=== PATIENT | male | born 1960 | race Caucasian/White ===

== ENCOUNTER 2017-06-26 21:07 | Emergency (ER) | payer BC, OTHER ==
--- NOTE | 2017-06-26 22:02 | EDM.PDOC ---
ED HPI GENERAL MEDICAL PROBLEM - General Chief Complaint: Respiratory Problem Stated Complaint: COUGH AND CONGESTION Time Seen by Provider: 06/26/17 21:40 Source of Information: Reports: Patient History Limitations: Reports: No Limitations - History of Present Illness INITIAL COMMENTS - FREE TEXT/NARRATIVE: 56 year old male presents for evaluation and treatment of a cough. Reports he has had the cough for the last month and it is steadily worsening. Reports it is a wet sounding cough but he is not coughing much up. Has tried multiple OTC medications with no relief. Reports associated chills, nasal congestion, malaise , bodyaches and headaches. States yesterday he "blacked out" from coughing but did not completely loose consciousness. No ear pain, nausea, vomiting or documented fevers. reports he has felt warm but he has not taken his temp. Reports over the last 2 days the cough has greatly worsened. Reports when he lays down the cough worsens. Reports shortness of breath and chest soreness from coughing. Patient does not have a PCP. No influenza vaccine this year. Not on any medications, has not seen a provider in at least 3 years. Duration: Week(s): (4) - Related Data Allergies Allergy/AdvReac Type Severity Reaction Status Date / Time egg Allergy Cannot Verified 06/26/17 21:17 Remember Home Meds: Home Meds . [No Known Home Meds] 06/26/17 [History] Past Medical History - Past Surgical History HEENT Surgical History: Reports: Naso-Sinus Surgery GI Surgical History: Reports: Appendectomy Social & Family History - Tobacco Use Smoking Status *Q: Never Smoker Second Hand Smoke Exposure: No - Caffeine Use Caffeine Use: Reports: Tea - Alcohol Use Days Per Week of Alcohol Use: 0 - Recreational Drug Use Recreational Drug Use: No ED ROS GENERAL - Review of Systems Review Of Systems: See Below Constitutional: Reports: Fever (no documented fevers), Chills, Malaise, Fatigue. Denies: Weight Loss, Weight Gain HEENT: Reports: Sinus Problem. Denies: Ear Pain, Throat Pain Respiratory: Reports: Shortness of Breath, Cough. Denies: Sputum Cardiovascular: Reports: Lightheadedness. Denies: Chest Pain (reports chest soreness from coughing), Syncope GI/Abdominal: Denies: Abdominal Pain, Nausea, Vomiting Neurological: Reports: Headache. Denies: Syncope ED EXAM, GENERAL - Physical Exam Exam: See Below Exam Limited By: No Limitations General Appearance: Alert, WD/WN, No Apparent Distress, Obese Eye Exam: Bilateral Eye: Normal Inspection, PERRL Ears: Normal External Exam, Normal Canal, Hearing Grossly Normal Ear Exam: Left Ear: TM Bulging, Bilateral Ear: Canal Normal, Erythema Nose: Normal Inspection Throat/Mouth: Normal Inspection, Normal Lips, Normal Voice, No Airway Compromise Respiratory/Chest: No Respiratory Distress, Rhonchi (bilateral lung bases) Cardiovascular: Normal Peripheral Pulses, Regular Rate, Rhythm, No Murmur Extremities: No Pedal Edema Neurological: Alert, Oriented, Normal Cognition Psychiatric: Normal Affect, Normal Mood Skin Exam: Warm, Dry, Normal Color Course - Vital Signs Last Recorded V/S: Last Vital Signs Temp 36.4 C 06/26/17 21:14 Pulse 78 06/26/17 21:14 Resp 16 06/26/17 21:14 BP 152/99 H 06/26/17 21:14 Pulse Ox 96 06/26/17 21:14 - Orders/Labs/Meds Labs: Laboratory Tests 06/26/17 06/26/17 Range/Units 21:50 21:50 WBC 7.30 (4.23-9.07) K/mm3 RBC 5.10 (4.63-6.08) M/mm3 Hgb 15.6 (13.7-17.5) gm/L Hct 46.3 (40.1-51.0) % MCV 90.8 (79.0-92.2) fl MCH 30.6 (25.7-32.2) pg MCHC 33.7 (32.2-35.5) g/dl RDW Std Deviation 48.3 H (35.1-43.9) fL Plt Count 211 (163-337) K/mm3 MPV 10.4 (9.4-12.3) fl Neut % (Auto) 59.6 (34.0-67.9) % Lymph % (Auto) 22.2 (21.8-53.1) % [place] % (Auto) 9.6 (5.3-12.2) % Eos % (Auto) 8.2 H (0.8-7.0) Baso % (Auto) 0.3 (0.1-1.2) % Neut # (Auto) 4.35 (1.78-5.38) K/mm3 Lymph # (Auto) 1.62 (1.32-3.57) K/mm3 [place] # (Auto) 0.70 (0.30-0.82) K/mm3 Eos # (Auto) 0.60 H (0.04-0.54) K/mm3 Baso # (Auto) 0.02 (0.01-0.08) K/mm3 Sodium 137 (136-145) mEq/L Potassium 3.8 (3.5-5.1) mEq/L Chloride 100 (98-107) mEq/L Carbon Dioxide 26 (21-32) mEq/L Anion Gap 14.8 (5-15) BUN 12 (7-18) mg/dL Creatinine 1.3 (0.7-1.3) mg/dL Est Cr Clr Drug Dosing 62.12 mL/min Estimated GFR (MDRD) 57 (>60) mL/min BUN/Creatinine Ratio 9.2 L (14-18) Glucose 305 H (74-106) mg/dL Calcium 9.0 (8.5-10.1) mg/dL - Radiology Interpretation Free Text/Narrative:: 2 view chest xray shows no obvious infiltrates, no pulmonary vascular congestion - Re-Assessments/Exams Free Text/Narrative Re-Assessment/Exam: 06/26/17 22:25 influenza is negative. I reviewed the labs and imaging with the patient. Blood sugar is elevated at over 300. Patient reports he last ate around 18:30 tonight. States he was told he was pre diabetic 3 years ago. Has been managing his pre diabetes with diet. Encouraged follow-up with family medicine. Discharge instructions as documented. Departure - Departure Time of Disposition: 22:34 Disposition: Home, Self-Care 01 Condition: Good Clinical Impression: Bronchitis, Hyperglycemia - Discharge Information Instructions: Hyperglycemia, Acute Bronchitis, [id number] Referrals: PCP,None [Primary Care Provider] - Arian Cordova [Physician] - Forms: ED Department Discharge Additional Instructions: Prescription for azithromycin 250 mg; sig: Take 2 tabs day 1, 1 tab day 2 through 5 Prescription for promethazine/codeine 6.2 510 per 5, sig : Take 5-10 mils every 4-6 hours as needed for cough #120mls Prescription for albuterol 1-2 puffss every 4-6 hours as needed for shortness of breath Perceptions were given through instymeds. Take the azithromycin as prescribed. 2 tabs on day 1 followed by 1 tabs on day 2 through 5 for 5 days of medication total. this Medication dose stay in your system for 10 days. Follow-up with family medicine next week for recheck of your symptoms and further evaluation of your hyperglycemia. Recommend Dr. Galvez or Dr. Valdes at the [facility]. Please call [phone] to schedule with either provider. Codeine cough syrup 5-10 mils every 4-6 hours as needed for cough. Do not drive or operate machinery while taking the codeine with cough syrup. Codeine can be habit forming, recommend you take as little as needed to control your cough. Albuterol inhaler 1-2 puffs every 4-6 hours as needed for shortness of breath. Rest. make sure you are drinking plenty of fluids. Please return to the ER if your symptoms change or worsen.
--- NOTE | 2017-06-27 09:50 | CR ---
Chest: Two views of the chest were obtained. Comparison: No prior chest x-ray. Heart size is normal. Tortuous thoracic aorta is seen. Lungs are clear with no acute infiltrates. Minimal degenerative change is seen within the spine. Impression: 1. Incidental findings. Nothing acute is appreciated on two-view chest x-ray. Diagnostic code #2
== END 2017-06-26 22:56 | disposition home or self-care (01) ==
LOC: JD.ED 21:07
DX: J40 Bronchitis, not specified as acute or chronic (principal); R73.9 Hyperglycemia, unspecified; Z91.012 Allergy to eggs
CPT/HCPCS: 36415; 71020; 71020-26; 80048; 85025; 87804; 99283; 99284

== ENCOUNTER 2019-10-02 06:49 | Day surgery (SDC) | payer OTHER ==
[~2019-10-02 06:49] MED LIST: Lidocaine 1%/Sod Bicarbonate in NS 8.4% 1 ML Syringe IDERM PRN; Sodium Chloride 0.9% 10 ML Syringe FLUSH PRN
[2019-10-02] MEDS: Lactated Ringers 1,000 ML IV SCH ×2 (07:25→10:25)
--- NOTE | 2019-10-02 08:31 | PCM.PREANE ---
Preanesthetic Assessment - Anesthesia/Transfusion/Family Hx Anesthesia History: Prior Anesthesia Without Reaction Family History of Anesthesia Reaction: No - Review of Systems General: No Symptoms Pulmonary: Cough (occasionally) Cardiovascular: No Symptoms Gastrointestinal: No Symptoms Neurological: No Symptoms Other: Reports: None - Physical Assessment NPO Status Date: 10/02/19 NPO Status Time: 04:00 Vital Signs: Last Vital Signs Temp 97.2 F 10/02/19 07:10 Pulse 63 10/02/19 07:10 Resp 28 H 10/02/19 07:10 BP 137/94 H 10/02/19 07:10 Pulse Ox 95 10/02/19 07:10 Height: 1.73 m Weight: 133.81 kg ASA Class: 3 Mental Status: Alert & Oriented x3 Airway Class: Mallampati = 3 Dentition: Reports: Normal Dentition Thyro-Mental Finger Breadths: 3 Mouth Opening Finger Breadths: 3 ROM/Head Extension: Limited/Partial Lungs: Clear to Auscultation, Normal Respiratory Effort Cardiovascular: Regular Rate, Regular Rhythm - Allergies Allergies/Adverse Reactions: Allergies Allergy/AdvReac Type Severity Reaction Status Date / Time egg Allergy Cannot Verified 10/01/19 11:47 Remember - Acknowledgements Anesthesia Type Planned: MAC Pt an Appropriate Candidate for the Planned Anesthesia: Yes Alternatives and Risks of Anesthesia Discussed w Pt/Guardian: Yes Pt/Guardian Understands and Agrees with Anesthesia Plan: Yes PreAnesthesia Questionnaire HEENT History: Reports: Impaired Vision, Other (See Below) Other HEENT History: wears glasses, has dentures Cardiovascular History: Reports: High Cholesterol, Hypertension Musculoskeletal History: Reports: Other (See Below) Other Musculoskeletal History: fractured ribs Psychiatric History: Reports: None Endocrine/Metabolic History: Reports: Diabetes, Type II, Obesity/BMI 30+ Hematologic History: Reports: None Immunologic History: Reports: None Oncologic (Cancer) History: Reports: None Dermatologic History: Reports: Cellulitis - Past Surgical History Head Surgeries/Procedures: Reports: None HEENT Surgical History: Reports: Naso-Sinus Surgery Cardiovascular Surgical History: Reports: None Respiratory Surgical History: Reports: None GI Surgical History: Reports: Appendectomy Female Surgical History: Reports: None Male Surgical History: Reports: None Endocrine Surgical History: Reports: None Neurological Surgical History: Reports: None Musculoskeletal Surgical History: Reports: None Oncologic Surgical History: Reports: None Dermatological Surgical History: Reports: None - SUBSTANCE USE Smoking Status *Q: Never Smoker Recreational Drug Use History: No - HOME MEDS Home Medications: Home Meds Aspirin [Halfprin] 81 mg PO DAILY 10/01/19 [History] Dulaglutide [Trulicity] 1.5 mg SQ KNIGHT 10/01/19 [History] Losartan [Cozaar] 50 mg PO DAILY 10/01/19 [History] Rosuvastatin [Crestor] 10 mg PO BEDTIME 10/01/19 [History] Cinnamon Bark [Cinnamon] 500 mg PO DAILY 10/02/19 [History] - CURRENT (IN HOUSE) MEDS Current Meds: Current Medications Lactated Ringer's (Ringers, Lactated) 1,000 mls @ 125 mls/hr IV ASDIRECTED NEYDA Stop: 10/02/19 23:00 Last Admin: 10/02/19 07:25 Dose: 125 mls/hr Lidocaine/Sodium Bicarbonate (Buffered Lidocaine 1% In Ns 8.4%) 0.25 ml IDERM ONETIME PRN PRN Reason: Prior to IV Start Stop: 10/02/19 18:00 Last Admin: 10/02/19 07:25 Dose: 0.25 ml Sodium Chloride (Saline Flush) 10 ml FLUSH ASDIRECTED PRN PRN Reason: Keep Vein Open Stop: 10/02/19 18:00
[2019-10-02] MEDS ORDERED: Propofol 200 MG/20 ML SDV ONE ×5 (08:36→09:27)
[2019-10-02] MEDS ORDERED: fentaNYL 100 MCG/2 ML SDV ONE (08:37)
[2019-10-02] MEDS ORDERED: Lidocaine 1% 4 ML ONE (08:38)
--- NOTE | 2019-10-02 09:53 | PCM.PRNOTE ---
- Free Text/Narrative Note: Date: 10/02/2019 Procedure: screening colonoscopy Endoscopist: Dev Valdovinos MD Findings: Ileocecal valve visualized. Prep was fair. Approximately 3 cm sessile lesion at lateral aspect of cecum; saline lift was performed and sample biopsy with forceps obtained- this lesion was not amenable to complete resection with endoscopic means. A broad-based 1 cm polyp was identified at the hepatic flexure with an adjacent subcentimeter polyp; these were biopsied with forceps; but fulguration was deferred and piecemeal resection deferred due to technically difficult visualization and access. Sigmoid diverticular disease and mild hemorrhoidal disease noted. Detailed Report: The patient was taken to the endoscopy suite and placed in left lateral decubitus position. Time out was performed and monitored anesthesia care was initiated. Mild hemorrhoidal prolapse noted. Digital rectal exam was unremarkable save for palpable hemorrhoidal cushions. The lubricated colonoscope was then inserted and advanced all the way to the cecum. The ileocecal valve was visualized. The prep was fair. On slow withdrawal of the scope, mucosal surfaces were carefully inspected. It was technically very difficult to maintain positioning and visualization in the cecum. There was a ridge of tissue suspicious for adenoma along the edge of one of the normal- appearing cecal folds. Image was captured and then saline lift was attempted. The lesion could not be ensnared, and so a sample biopsy with forceps was obtained. The lesion was too large for satisfactory piecemeal resection or cauterization. At approximately the level of the hepatic flexure, a roughly 1 cm broad-based polypoid lesion was encountered. This was a very technically difficult spot to work; maintaining visualization was difficult, and obtaining a single sample with biopsy forceps was challenging. There was an adjacent small polypoid lesion that was biopsied with forceps as well. Fulguration was deferred due to technical challenges. The remainder of the colon appeared normal without polyps until the level of the sigmoid, where significant diverticular disease was appreciated. On retroflexion of the scope in the rectum, mild hemorrhoidal disease was again appreciated. Air within the rectum was suctioned prior to withdrawal of the scope. The patient tolerated the procedure well. Dev Valdovinos MD General Surgery
--- NOTE | 2019-10-02 10:01 | PCM48HPAN ---
Post Anesthesia Note - EVALUATION WITHIN 48HRS OF ANESTHETIC Vital Signs in Normal Range: Yes Patient Participated in Evaluation: Yes Respiratory Function Stable: Yes Airway Patent: Yes Cardiovascular Function Stable: Yes Hydration Status Stable: Yes Pain Control Satisfactory: Yes Nausea and Vomiting Control Satisfactory: Yes Mental Status Recovered: Yes Vital Signs: Last Vital Signs Temp 96.9 F 10/02/19 09:49 Pulse 68 10/02/19 09:49 Resp 18 10/02/19 09:49 BP 112/80 10/02/19 09:49 Pulse Ox 92 L 10/02/19 09:49
== END 2019-10-02 11:00 | disposition home or self-care (01) ==
LOC: JD.SDS 06:49
PROVIDERS: ATTEND Surgery
DX: Z12.11 Encounter for screening for malignant neoplasm of colon (principal); K63.5 Polyp of colon; K57.30 Diverticulosis of large intestine without perforation or abscess without bleeding; K64.8 Other hemorrhoids; E11.9 Type 2 diabetes mellitus without complications; I10 Essential (primary) hypertension; E78.5 Hyperlipidemia, unspecified; E66.9 Obesity, unspecified; Z68.42 Body mass index [BMI] 45.0-49.9, adult; Z91.012 Allergy to eggs; Z79.82 Long term (current) use of aspirin; Z79.899 Other long term (current) drug therapy
CPT/HCPCS: 45380; 45381; 93005; J2001; J2704; J3010; J7120; 00812

== ENCOUNTER 2020-01-01 16:45 | Emergency (ER) | payer OTHER ==
[2020-01-01] MEDS ORDERED: Lidocaine 1% 10 ML MDV INJECT ONE (17:25)
--- NOTE | 2020-01-01 17:34 | EDM.PDOC ---
ED HPI GENERAL MEDICAL PROBLEM - General Chief Complaint: Laceration Stated Complaint: LEFT HAND LAC Time Seen by Provider: 01/01/20 17:08 Source of Information: Reports: Patient, RN Notes Reviewed History Limitations: Reports: No Limitations - History of Present Illness INITIAL COMMENTS - FREE TEXT/NARRATIVE: Patient is a 59-year-old male who presents to the ED for a left hand laceration. Patient states 1 hour prior to arrival to the ER, he was working with a edge grinder in his shop, and the metal ended up slipping and cutting the top of his left hand. This involves the second dorsal metacarpal, roughly 2.7 cm in length, linear. Bleeding is controlled at this time, he denies any sort of numbness or tingling distal to the injury, and can move the finger in all range of motion. Patient states his last tetanus was roughly 6 years ago. Patient notes that he has a past medical history of diabetes, and his primary care provider is Dr. Contreras. Denies any other sick-like symptoms, fever/chills, cough/shortness of breath, chest pain, nausea/vomiting/diarrhea. Left Hand Pain Score (Numeric/FACES): 1 - Related Data Allergies Allergy/AdvReac Type Severity Reaction Status Date / Time egg Allergy Cannot Verified 01/01/20 17:16 Remember Home Meds: Home Meds Aspirin [Halfprin] 81 mg PO DAILY 10/01/19 [History] Dulaglutide [Trulicity] 1.5 mg SQ KNIGHT 10/01/19 [History] Losartan [Cozaar] 50 mg PO DAILY 10/01/19 [History] Rosuvastatin [Crestor] 10 mg PO BEDTIME 10/01/19 [History] Cinnamon Bark [Cinnamon] 500 mg PO DAILY 10/02/19 [History] cephALEXin [Cephalexin] 500 mg PO BID #14 capsule 01/01/20 [Rx] Past Medical History HEENT History: Reports: Impaired Vision, Other (See Below) Other HEENT History: wears glasses, has dentures Cardiovascular History: Reports: High Cholesterol, Hypertension Musculoskeletal History: Reports: Other (See Below) Other Musculoskeletal History: fractured ribs Endocrine/Metabolic History: Reports: Diabetes, Type II, Obesity/BMI 30+ Dermatologic History: Reports: Cellulitis - Past Surgical History HEENT Surgical History: Reports: Naso-Sinus Surgery GI Surgical History: Reports: Appendectomy Social & Family History - Tobacco Use Smoking Status *Q: Never Smoker - Caffeine Use Caffeine Use: Reports: None - Recreational Drug Use Recreational Drug Use: No ED ROS GENERAL - Review of Systems Review Of Systems: Comprehensive ROS is negative, except as noted in HPI. ED EXAM, SKIN/RASH Exam: See Below Exam Limited By: No Limitations General Appearance: Alert, WD/WN, No Apparent Distress Eye Exam: Bilateral Eye: Normal Inspection Neck: Normal Inspection Respiratory/Chest: No Respiratory Distress, Lungs Clear, Normal Breath Sounds, No Accessory Muscle Use, Chest Non-Tender Cardiovascular: Normal Peripheral Pulses, Regular Rate, Rhythm, No Murmur Peripheral Pulses: 3+: Radial (L), Radial (R) GI/Abdominal: Normal Bowel Sounds, Soft, Non-Tender, No Distention, No Mass Extremities: Normal Inspection (With the exception of the laceration noted to the dorsal aspect of the second MCP), Normal Range of Motion, Normal Capillary Refill Neurological: Alert, Oriented, Normal Cognition, No Motor/Sensory Deficits Psychiatric: Normal Affect, Normal Mood Skin: Warm, Dry, Normal Color, No Rash, Wound/Incision (2.7 cm laceration to the dorsal aspect of the second MCP, not actively bleeding, no apparent tendon or nerve injury.) ED SKIN PROCEDURES - Laceration/Wound Repair Left Dorsal Digit - 2nd (Index) Appearance: Subcutaneous, Mildly Contaminated (washed with saline and hibilclenz ) Distal NVT: Neuro & Vascular Intact, No Tendon Injury Anesthetic Type: Local Local Anesthesia - Lidocaine (Xylocaine): 1% Plain Local Anesthetic Volume: 5cc Skin Prep: Chlorhexidine (Hibiciens), Saline Exploration/Debridement/Repair: Wound Explored, In a Bloodless Field, Explored to Base, Foreign Material Removed (small pieces of dark black debris were removed) Closed with: Sutures Lac/Wound length In cm: 2.7 Suture Size: 4-0 # of Sutures: 7 Suture Type: Prolene, Interrupted, Simple Sterile Dressing Applied: Nurse Tetanus Status Addressed: Yes Complications: No Course - Vital Signs Last Recorded V/S: Last Vital Signs Temp 96.9 F 01/01/20 17:06 Pulse 81 01/01/20 17:06 Resp 20 01/01/20 17:06 BP 136/87 01/01/20 17:06 Pulse Ox 93 L 01/01/20 17:06 - Orders/Labs/Meds Meds: Medications Discontinued Medications Generic Name Dose Route Start Last Admin Trade Name Douglas PRN Reason Stop Dose Admin Lidocaine HCl 10 ml 01/01/20 17:25 01/01/20 17:31 Xylocaine 1% INJECT 01/01/20 17:26 10 ml ONETIME ONE Administration Departure - Departure Time of Disposition: 17:46 Disposition: Home, Self-Care 01 Condition: Good Clinical Impression: Laceration of hand Qualifiers: Encounter type: initial encounter Foreign body presence: without foreign body Laterality: left Qualified Code(s): S61.412A - Laceration without foreign body of left hand, initial encounter - Discharge Information *PRESCRIPTION DRUG MONITORING PROGRAM REVIEWED*: No *COPY OF PRESCRIPTION DRUG MONITORING REPORT IN PATIENT REEMA: No Prescriptions: cephALEXin [Cephalexin] 500 mg PO BID #14 capsule Instructions: Sutured Wound Care, [id number] Referrals: Doc Gutierrez MD [Primary Care Provider] - Forms: ED Department Discharge Additional Instructions: You have been evaluated in the ED for your laceration. Sutures will need to stay in for 10-14 days (01/10-01/14) You may return to the ED or any clinic for removal. Please keep this area clean and dry, you may cleanse with regular soap and water. No vigorous scrubbing. Watch out for signs of infection like increased redness, swelling, pain at the laceration site, or if you should develop any fevers or chills. However you were started on an antibiotic called cephalexin, please take 1 tab BID for 7 days. Please return to ED if your symptoms change or worsen. Sepsis Event Note - Evaluation Sepsis Screening Result: No Definite Risk - Focused Exam Vital Signs: Vital Signs Temp Pulse Resp BP Pulse Ox 01/01/20 17:06 96.9 F 81 20 136/87 93 L Date Exam was Performed: 01/01/20 Time Exam was Performed: 18:15
== END 2020-01-01 18:26 | disposition home or self-care (01) ==
LOC: JD.ED 16:45
DX: S61.211A Laceration without foreign body of left index finger without damage to nail, initial encounter (principal); I10 Essential (primary) hypertension; E11.9 Type 2 diabetes mellitus without complications; E78.00 Pure hypercholesterolemia, unspecified; E66.9 Obesity, unspecified; Z68.42 Body mass index [BMI] 45.0-49.9, adult; Z91.012 Allergy to eggs; Z79.82 Long term (current) use of aspirin; Z79.899 Other long term (current) drug therapy; W26.8XXA Contact with other sharp object(s), not elsewhere classified, initial encounter
CPT/HCPCS: 12002; 99282; J2001